=== PATIENT | male | born 1990 | race Caucasian/White ===

== ENCOUNTER 2019-02-05 18:46 | Emergency (ER) | payer OTHER ==
[~2019-02-05] VITALS: Ht 180.3 cm; Wt 74.4 kg
[2019-02-05 19:11] VITALS: BP 135/68
[2019-02-05] MEDS ORDERED: RALTEGRAVIR POTASSIUM 400 MG TABLET PO ONE (19:30)
[2019-02-05] MEDS ORDERED: EMTRICITABINE/TENOFOVIR 1 TAB PO SCH (19:30)
[2019-02-05] MEDS ORDERED: TENOFOVIR DISOPROXIL FUMARATE 300 MG TABLET PO ONE (20:00)
[2019-02-05] MEDS ORDERED: EMTRICITABINE 200 MG CAPSULE PO ONE (20:00)
== END 2019-02-05 19:59 | disposition home or self-care (01) ==
LOC: ER 18:50
DX: F10.129 Alcohol abuse with intoxication, unspecified (principal); Y90.9 Presence of alcohol in blood, level not specified
CPT/HCPCS: 36415; 87806